=== PATIENT | male | born 1980 | race African-American/Black ===

== ENCOUNTER 2017-07-01 18:23 | Emergency (ER) | payer OTHER ==
[~2017-07-01] VITALS: Ht 180.3 cm; Wt 72.6 kg
== END 2017-07-01 19:15 | disposition home or self-care (01) ==
LOC: CED 18:23 → CFTX 18:23
DX: J03.90 Acute tonsillitis, unspecified (principal); F17.210 Nicotine dependence, cigarettes, uncomplicated; Z88.0 Allergy status to penicillin
CPT/HCPCS: 87651; 96372; 99283; J1100